=== PATIENT | male | born 1990 | race Caucasian/White ===

== ENCOUNTER 2018-08-27 20:45 | Emergency (ER) | payer OTHER ==
[~2018-08-27] VITALS: Ht 177.8 cm; Wt 84.8 kg
[2018-08-27 21:29] VITALS: Ht 177.8 cm; Wt 84.8 kg
[2018-08-27 23:51] VITALS: BP 126/72
== END 2018-08-27 23:51 | disposition home or self-care (01) ==
LOC: ED 20:45
DX: R25.2 Cramp and spasm (principal); M54.2 Cervicalgia; Z88.1 Allergy status to other antibiotic agents; V69.49XA Driver of heavy transport vehicle injured in collision with other motor vehicles in traffic accident, initial encounter; Y93.I9 Activity, other involving external motion; Y92.89 Other specified places as the place of occurrence of the external cause; Y99.8 Other external cause status
CPT/HCPCS: J1885

== ENCOUNTER 2019-01-30 19:21 | Emergency (ER) | payer SELFPAY ==
[~2019-01-30] VITALS: Ht 177.8 cm; Wt 85.8 kg
[2019-01-30 19:56] VITALS: BP 153/96; Ht 177.8 cm; Wt 85.8 kg
== END 2019-01-30 20:53 | disposition home or self-care (01) ==
LOC: ED 19:21
DX: S05.01XA Injury of conjunctiva and corneal abrasion without foreign body, right eye, initial encounter (principal); H10.31 Unspecified acute conjunctivitis, right eye; W50.0XXA Accidental hit or strike by another person, initial encounter; Y93.72 Activity, wrestling; Y92.89 Other specified places as the place of occurrence of the external cause; Y99.8 Other external cause status; Z88.1 Allergy status to other antibiotic agents